=== PATIENT | male | born 1950 | race Caucasian/White ===

== ENCOUNTER 2017-12-07 21:32 | Emergency (ER) | payer OTHER, MEDICARE ==
--- NOTE | 2017-12-07 22:35 | ER Document Report ---
ED Medical Screen (RME) - General Chief Complaint: Testicular Problem Stated Complaint: SKIN GROWTH Time Seen by Provider: 12/07/17 22:32 Mode of Arrival: Ambulatory Information source: Patient Notes: 67-year-old male woke up today urine that had a red and it with with right testicle pain which became swollen through the day. Mild dysuria. There is no anal or perineal pain. No abdominal or pelvic pain. He did have fever and chills today. No history of testicular/ prostate problems or cancer. - Related Data Allergies/Adverse Reactions: No Known Allergies Allergy (Unverified 12/07/17 21:39) Physical Exam - Vital signs Vitals: Temp Pulse Resp BP Pulse Ox 100.5 F H 85 20 126/69 H 98 12/07/17 21:53 12/07/17 21:53 12/07/17 21:53 12/07/17 21:53 12/07/17 21:53 Course - Vital Signs Vital signs: Temp Pulse Resp BP Pulse Ox 100.5 F H 85 20 126/69 H 98 12/07/17 21:53 12/07/17 21:53 12/07/17 21:53 12/07/17 21:53 12/07/17 21:53
[2017-12-07 22:58] LABS: ABSOLUTE EOSINOPHILS # (AUTO) 0.1 10^3/uL (0.0-0.6); ABSOLUTE LYMPHOCYTES (AUTO) 1.2 10^3/uL (0.5-4.7); ABSOLUTE MONOCYTES (AUTO) 1.1 10^3/uL (0.1-1.4); BASOPHILS % (AUTO) 0.3 % (0-2); EOSINOPHILS % (AUTO) 0.4 % (0-6); HEMATOCRIT 44.8 % (37.9-51.0); HEMOGLOBIN 14.9 g/dL (13.5-17.0); LYMPHOCYTES % (AUTO) 8.8 % (13-45); MEAN CORPUSCULAR HEMOGLOBIN 30.3 pg (27.0-33.4); MEAN CORPUSCULAR HGB CONC 33.4 g/dL (32.0-36.0); MEAN CORPUSCULAR VOLUME 91 fl (80-97); MONOCYTES % (AUTO) 8.2 % (3-13); PLATELET COUNT 109 10^3/uL (150-450); RED BLOOD COUNT 4.94 10^6/uL (4.35-5.55); RED CELL DISTRIBUTION WIDTH 14.5 % (11.5-14.0); SEGMENTED NEUTROPHILS % (AUTO) 82.3 % (42-78); TOTAL CELLS COUNTED % (AUTO) 100 %; WHITE BLOOD COUNT 13.4 10^3/uL (4.0-10.5)
[2017-12-07 23:07] LABS: APPEARANCE,URINE CLOUDY; BILIRUBIN,URINE NEGATIVE (NEGATIVE); GLUCOSE, URINE NEGATIVE (NEGATIVE); KETONES,URINE NEGATIVE (NEGATIVE); LEUKOCYTE ESTERASE,URINE LARGE (NEGATIVE); NITRITE,URINE POSITIVE (NEGATIVE); PROTEIN,URINE 100 mg/dL (NEGATIVE); URINE SPECIFIC GRAVITY 1.024
[2017-12-07 23:09] LABS: COLOR,URINE YELLOW
[2017-12-07 23:11] LABS: ALANINE AMINOTRANSFERASE 32 U/L (21-72); ALBUMIN 4.3 g/dL (3.5-5.0); ALKALINE PHOSPHATASE 76 U/L (38-126); ANION GAP 9 (5-19); ASPARTATE AMINO TRANSFERASE 36 U/L (17-59); BILIRUBIN,DIRECT 0.4 mg/dL (0.0-0.4); BILIRUBIN,TOTAL 1.3 mg/dL (0.2-1.3); BLOOD UREA NITROGEN 15 mg/dL (7-20); CARBON DIOXIDE 28 mmol/L (22-30); CHLORIDE 105 mmol/L (98-107); GLUCOSE 117 mg/dL (75-110); POTASSIUM 4.6 mmol/L (3.6-5.0); SODIUM 141.9 mmol/L (137-145); TOTAL PROTEIN 7.3 g/dL (6.3-8.2)
--- NOTE | 2017-12-08 00:20 | RADIOLOGY REPORT (SQ) ---
US SCROTUM HISTORY: Right testicular swelling and pain. COMPARISON: None. TECHNIQUE: Michel-scale, color Doppler, and spectral waveform tracings of the scrotum were obtained. FINDINGS: RIGHT: Right testis has normal echogenicity and size, measuring 4.1 x 3.1 cm. No testicular masses are seen. Normal arterial Doppler blood flow is present. Epididymis measures 1.3 x 0.9 cm and contains a small cyst. Increased vascularity of the epididymal tail. Small hydrocele. LEFT: Left testis has normal echogenicity and size, measuring 4.4 x 2.5 cm. No testicular masses are seen. Normal arterial Doppler blood flow is present. Epididymis measures 1.1 x 0.8 cm. No skin thickening or edema is seen. IMPRESSION: 1. No evidence of testicular torsion. 2. Increased vascular of the right epididymal tail suggesting epididymitis. Small right hydrocele.
[2017-12-08] MEDS ORDERED: CEFTRIAXONE INJ 1000 MG VIAL IM ONE (00:37)
[2017-12-08] MEDS ORDERED: LIDOCAINE 1% INJ-PF (10 MG/ML) 30 ML SDV INFIL ONE (00:37)
[2017-12-08 00:38] VITALS: BP 130/58
--- NOTE | 2017-12-08 00:40 | ER Document Report ---
ED General - General Chief Complaint: Testicular Problem Stated Complaint: SKIN GROWTH Time Seen by Provider: 12/07/17 22:32 Mode of Arrival: Ambulatory Notes: Patient is a pleasant 67-year-old male who presents with complaint of testicular pain. Pain is in the right testicle. He has some swelling there. It started this morning. He is also noticed some darkening of his urine for the last 2 days. No fevers. No vomiting. No diarrhea. No history of this happening in the past. He does have a history of kidney stones but has never had swelling in his testicle like this and this does not feel similar to a kidney stone to him. He is sexually monogamous with his . - Related Data Allergies/Adverse Reactions: No Known Allergies Allergy (Unverified 12/07/17 21:39) Past Medical History - General Information source: Patient - Social History Smoking Status: Current Some Day Smoker Frequency of alcohol use: Social Drug Abuse: None Family History: Reviewed & Not Pertinent Patient has suicidal ideation: No Patient has homicidal ideation: No Renal/ Medical History: Denies: Hx Peritoneal Dialysis Review of Systems - Review of Systems Notes: My Normal Review Basic REVIEW OF SYSTEMS: CONSTITUTIONAL : Denies fever, chills, or sweats. Denies recent illness. GASTROINTESTINAL: Denies abdominal pain. Denies nausea, vomiting, or diarrhea. GENITOURINARY: Testicular swelling and pain to the right testicle. MUSCULOSKELETAL: Denies neck or back pain or joint pain or swelling. SKIN: Denies rash or skin lesions. NEUROLOGICAL: Denies altered mental status or loss of consciousness. Denies headache. Denies weakness or paralysis or loss of use of either side. Denies problems with gait or speech. Denies sensory or motor loss. ALL OTHER SYSTEMS REVIEWED AND NEGATIVE. Physical Exam - Vital signs Vitals: Temp Pulse Resp BP Pulse Ox 100.5 F H 85 20 126/69 H 98 12/07/17 21:53 12/07/17 21:53 12/07/17 21:53 12/07/17 21:53 12/07/17 21:53 - Notes Notes: General Appearance: Well nourished, alert, cooperative, no acute distress, mild obvious discomfort. Well-appearing. Vitals: reviewed, See vital signs table. Abdomen: Normal BS, soft, No rigidity, No abdominal tenderness, No guarding, no rebound, no abdominal masses, no organomegaly Genital: Patient has small amount of swelling around the right testicle region. Very mild erythema. The penis itself is normal-appearing without redness or swelling. No abnormal discharge from the urethra. Mild pain to palpation to the right testicle. Extremities: strength 5/5 in all extremities, good pulses in all extremities, no swelling or tenderness in the extremities, no edema. Skin: warm, dry, appropriate color, no rash Neuro: speech clear, oriented x 3, normal affect, responds appropriately to questions. Course - Re-evaluation Re-evalutation: 12/08/17 05:50 Patient's exam and ultrasound are consistent with that of epididymitis. Patient given a shot of Rocephin and will be started on Levaquin. He is to return to ER if he has increasing swelling or redness, fevers, or if he feels he is worsening. Patient agrees with plan will be discharged home. Dictation of this chart was performed using voice recognition software; therefore, there may be some unintended grammatical errors. - Vital Signs Vital signs: Temp Pulse Resp BP Pulse Ox 99.7 F 89 20 130/58 H 92 12/07/17 23:53 12/07/17 23:53 12/07/17 23:53 12/07/17 23:53 12/07/17 23:53 - Laboratory Result Diagrams: 12/07/17 22:40 12/07/17 22:40 Laboratory results interpreted by me: 12/07/17 12/07/17 12/07/17 22:40 22:40 22:40 WBC 13.4 H RDW 14.5 H Plt Count 109 L Seg Neutrophils % 82.3 H Lymphocytes % 8.8 L Absolute Neutrophils 11.0 H Glucose 117 H Urine Protein 100 H Urine Blood LARGE H Urine Nitrite POSITIVE H Urine Urobilinogen 4.0 H Ur Leukocyte Esterase LARGE H Discharge - Discharge Clinical Impression: Epididymitis Condition: Good Disposition: HOME, SELF-CARE Additional Instructions: Epididymitis You have epididymitis. This is an inflammation of the organ just behind the testicle, called the epididymis. It can be due to infection in the bladder or prostate. Many cases are simply inflammation and are not caused by germs. Epididymitis often develops after heavy lifting or vigorous exercise. Antibiotics and antiinflammatory medication are often prescribed. Elevation of the scrotum with a jock-strap or tight briefs will help with the pain. Pain medication may be required. Either cold packs or warm sitz baths can help with the pain -- ask your doctor which he recommends for your case. It may take 10 to 14 days until the pain is gone. Avoid heavy lifting during this time. Call the doctor or go to the hospital if you develop fever, increasing pain , or severe swelling, or if you fail to improve as expected. You have been prescribed an antibiotic that is in the class of antibiotics called fluoroquinolones. On rare occasions these can cause weakness of the tendons. You should therefore avoid any type of heavy lifting or sporting activities while you are on this antibiotic and up to 1 week after stopping it. Prescriptions: Levofloxacin [Levaquin 750 mg Tablet] 750 mg PO DAILY #14 tablet Referrals: NANCY CLEMENS PA-C [Primary Care Provider] - Follow up in 3-5 days
== END 2017-12-08 00:54 | disposition home or self-care (01) ==
LOC: ER 21:32
DX: N45.1 Epididymitis (principal); N50.811 Right testicular pain; N50.89 Other specified disorders of the male genital organs; F17.200 Nicotine dependence, unspecified, uncomplicated
CPT/HCPCS: 99284; 96372; 36415; 87040; 87086; 85025; 87088; 80053; 81001; 87186; 76870; 93976; J3490; J0696